=== PATIENT | female | born 1965 | race Caucasian/White ===

== ENCOUNTER → 2017-08-30 13:39 | Outpatient (CLI) | payer OTHER, SELFPAY ==
--- NOTE | 2017-08-30 13:49 | US_ITS ---
STUDY: ULTRASOUND OF THE FEMALE PELVIS - COMPLETE REASON FOR EXAM: Female, 51 years old. Pelvic pain TECHNIQUE: Transabdominal and transvaginal pelvic ultrasound COMPARISON: 04/30/[address] abdomen and pelvis 08/30/2017. FINDINGS: Uterus is surgically absent. There is no mass or suspicious cyst in the left or right adnexa. There is no free fluid in the pelvic cul-de-sac or adnexa. Ovaries are not identified. Urinary bladder appears normal in caliber, contour and wall thickness. US/Pelvic (Non ) IMPRESSION: No acute intrapelvic process is evident. Electronically Signed: Deacon Butler, at 8:59 EDT Tel , Service support ,
--- NOTE | 2017-08-30 15:12 | CT_ITS ---
STUDY: CT ABDOMEN AND PELVIS WITH CONTRAST REASON FOR EXAM: Female, 51 years old. Abdominal pain and pressure. Prolapsed bowel? Prior ZHEN/BSO and cholecystectomy. RADIATION DOSAGE (If Supplied By Facility): CTDIvol = ( 18.00 ) mGy, DLP = ( 1030.80 ) mGycm TECHNIQUE: Transaxial images were obtained from the dome of the diaphragm to the symphysis pubis with oral contrast. 100 ml of Isovue 300 contrast was administered. Sagittal and coronal images were reconstructed. Individualized dose optimization techniques were used for this CT. COMPARISON: None. FINDINGS: The visualized lung bases are unremarkable. The visualized portions of the heart are within normal limits. Normal liver. There are surgical clips in the gallbladder fossa consistent with a prior cholecystectomy. Normal spleen. Normal pancreas. Normal bilateral adrenal glands. Subcentimeter cysts of the inferior pole of the right kidney. Otherwise normal right kidney. Normal left kidney. Normal visualized stomach. Normal small intestine. Normal colon. The appendix is visualized and appears normal. Minimal calcified plaque of the aorta. Normal inferior vena cava. Normal retroperitoneum. Normal urinary bladder. There is absence of the uterus consistent with a prior hysterectomy. Negative for pelvic mass or free fluid in the pelvis. Small dysraphism and minimal fatty umbilical hernia. Mild degenerative changes of the lumbar spine. CT/Abdomen/Pelvis WITH Contrast IMPRESSION: Essentially normal abdomen and pelvic CT exam status post cholecystectomy and hysterectomy. Negative for evidence of bowel prolapse in the supine position. Subcentimeter cysts of the inferior pole of the right kidney and minimal calcified plaque of the aorta. Electronically Signed: Margareth Garcia MD at 16:35 EDT , Service support ,
== END ==
PROVIDERS: Family Provider Family Medicine; PCP Family Medicine; Visit Provider Family Medicine
DX: R10.2 Pelvic and perineal pain (principal)
CPT/HCPCS: 74177; 76856; Q9967

== ENCOUNTER → 2018-07-26 13:01 | Outpatient (CLI) | payer OTHER, SELFPAY ==
--- NOTE | 2018-07-26 14:30 | CT_ITS ---
STUDY: CT ABDOMEN AND PELVIS WITH CONTRAST REASON FOR EXAM: Female, 52 years old. Left lower quadrant pain. RADIATION DOSAGE (If Supplied By Facility): CTDIvol = ( 16.44 ) mGy, DLP = ( 1143.31 ) mGycm TECHNIQUE: Transaxial images were obtained from the dome of the diaphragm to the symphysis pubis without oral contrast. 100 IV/Oral Isovue 300 was administered. Sagittal and coronal images were reconstructed. Individualized dose optimization techniques were used for this CT. COMPARISON: August 30, 2017 FINDINGS: The visualized lung bases are unremarkable. The visualized portions of the heart are within normal limits. There is decreased attenuation of the liver consistent with steatosis. There is evidence of prior cholecystectomy. Normal spleen. Normal pancreas. Normal bilateral adrenal glands. There is a too small to characterize low-attenuation focus within the lower pole of the right kidney that likely reflects underlying cyst. Normal left kidney. Normal visualized stomach. Normal small intestine. Normal colon. The appendix is visualized and appears normal. There are scattered peripheral calcifications of the abdominal aorta and system with atherosclerosis. Normal inferior vena cava. Normal retroperitoneum. Normal urinary bladder. There is absence of the uterus consistent with a prior hysterectomy. Normal abdominal wall. There are diffuse degenerative changes of the visualized lumbar spine. CT/Abdomen/Pelvis WITH Contrast IMPRESSION: Fatty infiltration of the liver. Atherosclerosis. Degenerative changes. Electronically Signed: Cierra Hobbs MD at 16:01 EDT Tel , Service support ,
== END ==
PROVIDERS: Family Provider Family Medicine; PCP Family Medicine; Referring Provider Family Medicine; Visit Provider Family Medicine
DX: R10.9 Unspecified abdominal pain (principal)
CPT/HCPCS: 74177; Q9967

== ENCOUNTER → 2018-12-30 14:36 | Outpatient (CLI) | payer OTHER, SELFPAY ==
[2017-09-11 14:28] VITALS: BMI 33.0
--- NOTE | 2018-12-30 14:41 | RAD_ITS ---
STUDY: X-RAY - ABDOMEN/PELVIS REASON FOR EXAM: Female, 53 years old. Left lower quadrant pain. TECHNIQUE: COMPARISON: None. FINDINGS: Normal visualized lung bases. There is an unremarkable bowel gas pattern. There is no demonstrated free abdominal air. The visualized liver, spleen and kidneys are grossly normal in size and morphology. There are calcified phleboliths in the pelvis. Normal visualized osseous structures. RAD/Abd Inc Decub and/or Erect IMPRESSION: Multiple phleboliths are seen in the pelvis. A tiny distal ureteral calculus cannot be excluded. Electronically Signed: Naren Mena, at 15:39 EDT , Service support ,
== END ==
PROVIDERS: Family Provider Family Medicine; PCP Family Medicine; Referring Provider Nurse Practitioner Adult Health; Visit Provider Nurse Practitioner Adult Health
DX: R10.32 Left lower quadrant pain (principal)
CPT/HCPCS: 74019

== ENCOUNTER → 2019-01-09 08:21 | Outpatient (CLI) | payer OTHER, SELFPAY ==
[2017-09-11 14:28] VITALS: BMI 33.0
--- NOTE | 2019-01-09 08:23 | BI_ITS ---
BILATERAL DIGITAL MAMMOGRAM WITH TOMOSYNTHESIS: Mediolateraloblique and craniocaudal views demonstrate no evidence of dominant parenchymal masses. There is a cluster of loosely grouped microcalcifications seen in the superior lateral aspect of the right breast which previously were not identified, on the prior mammogram obtained on 05/14/2015. Specifically a cluster of 3 more closely grouped microcalcifications is now seen in about the 10:00 position in the posterior third of the right breast. These calcifications are of uncertain etiology but carcinoma in situ as a diagnostic consideration as has milk of calcium. For this reason a targeted right breast ultrasound with compression spot images in the craniocaudal and MLO projection and true lateral projection are recommended for additional evaluation the left breast is normal. Breast Density: The breast tissue is almost entirely fatty. CAD was used to assist in final assessment. BI/SCREEN MAMM (CAD) W/GILBERT BILAT IMPRESSION: No noted are some loosely grouped microcalcifications which are new in the superior lateral aspect of the right breast. Additional imaging including a magnified compression spot imaging the craniocaudal and MLO projection and a true lateral projection is recommended for further evaluation. ASSESSMENT CATEGORY: BIRADS Category 0: Incomplete. Need additional imaging evaluation. A letter regarding these results will be sent to the patient by the facility within 30 days. Approximately 10% of breast cancers are not detected by mammography. A normal mammogram should not delay biopsy of a clinically suspicious abnormality. [id number] Electronically Signed: Silverio Garcia, at 17:24 EDT Tel , Service support ,
== END ==
PROVIDERS: Family Provider Family Medicine; PCP Family Medicine; Referring Provider Family Medicine; Visit Provider Family Medicine
DX: Z12.31 Encounter for screening mammogram for malignant neoplasm of breast (principal)
CPT/HCPCS: 77063; 77067

== ENCOUNTER → 2019-01-10 15:00 | Outpatient (CLI) | payer OTHER, SELFPAY ==
--- NOTE | 2019-01-10 15:22 | BI_ITS ---
MAMMOGRAPHY - UNILATERAL DIAGNOSTIC: RIGHT BREAST REASON FOR EXAM: Female, 53 years old. Microcalcifications in the superior lateral aspect of the right breast PERTINENT HISTORY: Non-contributory. TECHNIQUE: Digital examination. Mediolateral oblique (MLO) and craniocaudad (CC) views of the breast were obtained. CAD: COMPARISON: Previous mammogram obtained on 01/09/2019 FINDINGS: Breast CompositionScattered densities noted throughout the breast. There are no dominant masses or suspicious calcifications. There are some loosely grouped calcifications noted in the superior lateral aspect which were not seen on a previous mammogram the 05/14/2015 in particular, the 3 most inferior calcifications are more tightly grouped and irregular. These 3 calcifications in particular could represent sclerosing adenosis or cecal microcalcifications or carcinoma in situ and a stereotactic right breast biopsy or follow-up mammogram in 6 months would be necessary for further evaluation. These calcifications do not demonstrate layering BI/DIAG MAMM W/CAD, UNILAT IMPRESSION: Some microcalcifications are noted in the superior lateral aspect of the right breast of uncertain etiology. Although they could represent secretory calcifications, sclerosing adenosis or carcinoma in situ cannot be excluded and for this reason a stereotactic breast biopsy is recommended for further evaluation. ASSESSMENT CATEGORY: FINAL ASSESSMENT: BI-RAD CATEGORY IV (SUSPICIOUS ABNORMALITY - BIOPSY RECOMMENDED). FOLLOW-UP RECOMMENDATION: Approximately 10% of breast cancers are not detected by mammography. A normal mammogram should not delay biopsy of a clinically suspicious abnormality. Electronically Signed: Silverio Garcia, at 17:10 EDT Tel , Service support ,
== END ==
PROVIDERS: Family Provider Family Medicine; PCP Family Medicine; Referring Provider Family Medicine; Visit Provider Family Medicine
DX: R92.8 Other abnormal and inconclusive findings on diagnostic imaging of breast (principal)
CPT/HCPCS: 77065

== ENCOUNTER 2019-02-19 02:18 | Emergency (ER) | payer OTHER, SELFPAY ==
[2019-02-19 02:19] VITALS: BP 188/100; PULSE 97; RESP 15; TEMP 36.9; O2SAT 99; BMI 34.2
--- NOTE | 2019-02-19 02:25 | ED.RN ---
RN CALLED FOR EKG, PULLED OLD EKGS FOR
--- NOTE | 2019-02-19 02:31 | EKG12_ITS ---
Test Reason : CP Blood Pressure : / mmHG Vent. Rate : 097 BPM Atrial Rate : 097 BPM P-R Int : 144 ms QRS Dur : 084 ms QT Int : 326 ms P-R-T Axes : 037 004 016 degrees QTc Int : 414 ms Normal sinus rhythm Possible Left atrial enlargement Cannot rule out Inferior infarct , age undetermined Abnormal ECG Confirmed by SANDEE DORSEY, LEE ([id number]), school photograph editor SADAF MARTINI ([id number]) on 02/21/2019 12:39:43 PM Referred By: NASRIN Confirmed By:CECY IGNACIO MD
--- NOTE | 2019-02-19 02:31 | RAD_ITS ---
STUDY: X-RAY CHEST REASON FOR EXAM: Female, 53 years old. Left-sided chest pain for several years. Patient has increasing shortness of breath for 3 days. TECHNIQUE: PA and lateral views of the chest. COMPARISON: June 29, 2014. FINDINGS: Cardiac monitoring leads are present. The lungs are clear and expanded. There is no demonstrated pleural abnormality. Normal size heart. Normal mediastinum and frances. Normal visualized pulmonary arteries. Normal visualized aortic arch and descending thoracic aorta. Normal visualized thoracic spine. Normal visualized ribs, clavicles, and shoulders. There is no demonstrated abnormality of the visualized soft tissue structures of the upper abdomen. RAD/Chest PA and Lateral IMPRESSION: No radiographic evidence of acute cardiopulmonary disease. Electronically Signed: Brianna Kim MD at 2:58 EST , Service support ,
[2019-02-19 02:41] LABS: Absolute Lymphocyte Count 3.85 X10^3/uL (0.83-4.51); Absolute Neutrophil Count 4.3 X10^3/uL (2.0-7.7); Basophil# 0.08 X10^3/uL; Basophil% 0.8 % (0-1); Eosinophil# 0.25 X10^3/uL; Eosinophils% 2.6 % (0-5); Hematocrit 42.7 % (37-47); Hemoglobin 13.9 g/dL (12.0-15.0); Lymphocyte # 3.85 X10^3/ul (4.0); Lymphocyte % 40.7 % (19-41); Mean Corp Hgb Conc 32.6 g/dL (32-36); Mean Corpuscular Hgb 29.4 pg (27.0-32.0); Mean Corpuscular Volume 90.5 fL (81-99); Mean Platelet Vol. 8.3 fl (6.2-12.0); Monocyte# 0.94 X10^3/uL; Monocyte% 9.9 % (0-10); NRBC Flagged by Analyzer 0 % (0-5); Neutrophil # 4.31 X10^3/uL (2.7-7.7); Neutrophil % 45.7 % (47-70); Platelet Count 348 K/mm3 (150-450); RBC Distribution Width CV 12.7 % (11.6-14.6); RBC Distribution Width SD 42.4 fl (35.1-43.9); Red Blood Count 4.72 M/mm3 (4.2-5.4); White Blood Count 9.5 K/mm3 (4.4-11.0)
[2019-02-19] MEDS: Aspirin 81 MG TAB.CHEW 324 MG PO (02:46)
[2019-02-19 02:49] VITALS: BP 157/89
[2019-02-19 02:58] LABS: Anion Gap 6 (5-15); BUN 13 mg/dL (7-18); BUN/Creat Ratio 18.8 RATIO (10-20); Calcium,Total 9.3 mg/dL (8.5-10.1); Chloride 102 mmol/L (98-107); Creatinine, Serum 0.69 mg/dL (0.55-1.02); EST Glomerular Filtration Rate 94 mL/min (>60); Est Glom Filt Rate - Afr Amer 114 mL/min (>60); Estimated Creatinine Clearance 80.49 ml/min; Glucose 113 mg/dL (74-106); Potassium 3.4 mmol/L (3.5-5.1); Sodium Level 138 mmol/L (136-145)
--- NOTE | 2019-02-19 04:16 | ED.VIS.CHEST ---
History of Present Illness Chief Complaint: Chest Pain Informant: Patient Onset: Days Quality: Aching Location: Left Chest Current Severity: Severe Worsened By: Nothing Relieved By: Nothing Associated Symptoms: Nausea Narrative: Patient is a 53-year-old female presenting with chest pain. Patient states she has chronic pain in her left breast. She describes it as an ache and states she had increased pressure. She has been worsening over the past month and more significantly over the past few days. She notes sometimes the pain radiates to her left underarm in her shoulder. She states is been particularly pounding since yesterday. Patient notes she has associated headache and nausea but no vomiting. She had normal bowel movements. She woke up to use the restroom tonight the pain was significantly worse. She also felt that she was shaking and her jaw was quivering. This is what triggered the patient to come to the emergency room. Patient also notes she is been more fatigued lately. She notes over the past 2 months she is also had what feels like mucus or not in her throat. Patient denies any history of DVT or PE. She denies any swelling of her legs. She does not currently feel short of breath. She did tell triage that she was feeling short of breath but when I talked her she states it is more of the sensation of something in her throat than actual dyspnea. Patient denies associated fever or chills. She denies any rash. She denies any aggravating or alleviating factors. Patient has had negative stress test in the past as well as negative catheterization. She has seen Dr. Hartman, cardiology. Recent Illness/Hospitalization: No Past Medical History - Allergies and Home Meds Allergies/Adverse Reactions: Allergies latex Allergy (Verified 02/19/19 02:19) Rash Penicillins Allergy (Verified 02/19/19 02:19) Rash Primary Care Physician: Airam Garrett MD [Primary Care Provider] - Past Medical History: - - anemia Surgical History: hysterectomy Smoking Status: Never smoker - Family History Paternal Family History: Family History (Last Updated 09/11/17 @ 14:35 by Kathie Palma) Father Cancer Heart disease Grandmother Heart disease Grandfather Heart disease Mother Hypertension Family History: Reports: Heart Disease - Bypass surgery ?4 Maternal Family History: Family History (Last Updated 09/11/17 @ 14:35 by Kathie Palma) Father Cancer Heart disease Grandmother Heart disease Grandfather Heart disease Mother Hypertension Family History: Reports: - - Atypical recovery from anesthesia. History TKR Review of Systems General: Reports: - - Lightheaded . Denies: Chills, Fever, Sweats Eyes: Denies: Visual changes - bilaterally, Diplopia ENT: Reports: Sore throat. Denies: Rhinorrhea Cardiovascular: Reports: Chest pain. Denies: Palpitations Respiratory: Denies: Dyspnea, Cough, Dyspnea on exertion Gastrointestinal: Reports: Nausea. Denies: Abdominal pain, Vomiting, Diarrhea Genitourinary: Denies: Dysuria, Hematuria, Frequency Musculoskeletal: Denies: Back pain, Extremity Pain Skin: Denies: Rash, Wounds Neurological: Denies: Headache, Weakness, Numbness Physical Exam Vital Signs/Narrative: Vital Signs Temp Pulse Resp BP Pulse Ox 02/19/19 02:49 157/89 H 02/19/19 02:19 98.4 F 97 15 188/100 H 99 Inital Vital Signs reviewed: Yes General: Well nourished, Well developed, No Acute Distress Head: Normocephalic, Atraumatic Eyes: Perrl, EOMI ENT: Moist mucous membranes, No rhinorrhea, TM's clear Neck: Supple, Nontender Cardiovascular: Regular rate, Regular rhythm, No murmurs Respiratory: No distress, CTA bilaterally, Chest tenderness - left anterior upper chest wall Abdomen: Soft, Nontender, Nondistended, Normal bowel sounds. Negative for: Rush's sign Back: Nontender, Normal Inspection Extremities: Nontender, No edema Skin: Normal color, No rash Neurological: Alert, Oriented x3, Cranial nerves II-XII grossly intact, Normal Strength, Normal Sensation Psychological: Normal affect, Normal Mood Diagnostic/Tx/Re-eval Chest X-Ray - ED: 2 View, Read by ED Physician, Read by Radiologist, No Acute Disease Clinical Impression(s) from Imaging Studies Chest X-Ray 02/19/19 02:31 IMPRESSION: No radiographic evidence of acute cardiopulmonary disease. Electronically Signed: Brianna Kim MD at 2:58 EST , Service support , Laboratory Data 02/19/19 02/19/19 02/19/19 02:20 02:20 05:20 WBC 9.5 RBC 4.72 Hgb 13.9 Hct 42.7 MCV 90.5 MCH 29.4 MCHC 32.6 RDW Std Deviation 42.4 RDW Coeff of Millicent 12.7 Plt Count 348 MPV 8.3 Immature Gran % (Auto) 0.300 Neut % (Auto) 45.7 L Lymph % (Auto) 40.7 [place] % (Auto) 9.9 Eos % (Auto) 2.6 Baso % (Auto) 0.8 Absolute Neuts (auto) 4.3 Absolute Lymphs (auto) 3.85 Nucleated RBC % 0 Sodium 138 Potassium 3.4 L Chloride 102 Carbon Dioxide 30.0 Anion Gap 6 BUN 13 Creatinine 0.69 Estim Creat Clear Calc 80.49 Est GFR (MDRD) Af Amer 114 Est GFR (MDRD) Non-Af 94 BUN/Creatinine Ratio 18.8 Glucose 113 H Calcium 9.3 Troponin I < 0.015 < 0.015 - Rhythm Strip Rhythm Strip: Sinus Rhythm - 100 Ectopy: None - EKG Initial EKG Interpretation: Sinus Rhythm, - - Sinus rhythm at a rate of 100 Normal intervals Left axis deviation Nonspecific T wave inversion in lead III Poor baseline secondary to motion artifact ind V5 and V6 Prior: Unchanged - 06/30/14 Follow-up EKG Interpretation: Sinus Rhythm, Non-Specific ST Changes, - - Sinus rhythm at a rate of 68 Left axis T wave inversion in lead III No change except for slightly lower rate compared to prior EKG earlier DESTINY Risk: No Positive DESTINY Elements Score: 0 - Medical Decision Making She is evaluated for chest pain. She has had this chest pain for months but is been more intense over the past few days. Patient is low risk for ACS. Delta troponin is negative x2. She does not have dynamic EKG changes. Due to the chronicity of her symptoms as well as her grossly negative work-up I do feel that she is stable for further outpatient follow-up. Patient will follow-up with her PCP. She does have relation with cardiology and will follow up with Dr. Hartman as well. Patient sensation of discomfort in the back of her throat and her upper chest pain is concerning for possible GI cause. Patient is given a GI cocktail does have improvement of her symptoms. She will be started on Pepcid empirically. Patient is hypertensive on arrival. Without intervention her blood pressure returns to normal. Likely initial presentation of hypertension was secondary to discomfort and stress. Patient does complain of a headache in the ER. She has a normal neurologic exam. She states this is her typical headaches. She is given a dose of IV Toradol for this. Patient is counseled on signs and symptoms requiring return to the emergency room. Patient verbalizes agreement and understand this plan. Patient discharged home in stable and improved condition. ED Disposition - Plan for ED Patient: Disposition: Home or Assisted Living Diagnosis: Chest pain Instructions: CHEST PAIN, Uncertain Cause Prescriptions: Famotidine [Pepcid] 20 mg PO BID #28 tab Prescription Printed Referrals: Airam Garrett MD [Primary Care Provider] - Additional Instructions: The exact cause of your chest pain is not clear however I think you are safe to follow-up with your primary care doctor. Call your air shovel operator for follow-up as well. He will be trialed on a course of an antacid to see if this helps with your symptoms. Take Tylenol as needed for pain. Return the emergency room if you have any worsening symptoms.
[2019-02-19 04:30] VITALS: BP 142/78; PULSE 74; RESP 14; O2SAT 95
[2019-02-19] MEDS: Mag Hydrox/Al Hydrox/Simeth 30 ML UDC PO (04:36)
--- NOTE | 2019-02-19 05:17 | EKG12_ITS ---
Test Reason : REPEAT Blood Pressure : / mmHG Vent. Rate : 068 BPM Atrial Rate : 068 BPM P-R Int : 162 ms QRS Dur : 080 ms QT Int : 424 ms P-R-T Axes : 010 -06 -13 degrees QTc Int : 450 ms Normal sinus rhythm Minimal voltage criteria for LVH, may be normal variant Inferior infarct , age undetermined Abnormal ECG Confirmed by SANDEE DORSEY, LEE ([id number]), editor publications SADAF MARTINI ([id number]) on 02/21/2019 12:27:42 PM Referred By: KRISTAN Confirmed By:CECY IGNAICO MD
[2019-02-19 06:14] VITALS: BP 124/73; PULSE 68; RESP 14; O2SAT 94
[2019-02-19 06:15] VITALS: BP 118/73; PULSE 68; RESP 12; O2SAT 95
[2019-02-19] MEDS: Ketorolac 15 MG/ML Vial IV (07:00)
== END 2019-02-19 07:07 | disposition home or self-care (01) ==
PROVIDERS: Emergency Provider Emergency Medicine; Family Provider Family Medicine; PCP Family Medicine
DX: R07.9 Chest pain, unspecified (principal); R51 Headache; Z82.49 Family history of ischemic heart disease and other diseases of the circulatory system
CPT/HCPCS: 71046; 80048; 84484; 85025; 93005; 96374; 99285; A4216

== ENCOUNTER 2019-02-19 21:46 | Observation (INO) | payer OTHER, SELFPAY ==
[2019-02-19 02:19] VITALS: BMI 34.2
[2019-02-19 21:48] VITALS: BP 196/104; PULSE 99; RESP 17; TEMP 36.9; O2SAT 98; BMI 34.7
--- NOTE | 2019-02-19 22:11 | EKG12_ITS ---
Test Reason : ADMISSION EKG Blood Pressure : / mmHG Vent. Rate : 064 BPM Atrial Rate : 064 BPM P-R Int : 152 ms QRS Dur : 088 ms QT Int : 426 ms P-R-T Axes : 008 009 004 degrees QTc Int : 439 ms Normal sinus rhythm Normal ECG When compared with ECG of 19-FEB-2019 21:50, MANUAL COMPARISON REQUIRED, DATA IS UNCONFIRMED Confirmed by KEYANNA DORSEY, ELANA ([id number]), newspaper editor managing SADAF MARTINI ([id number]) on 02/24/2019 10:14:20 AM Referred By: JAD Confirmed By:ELANA BRICEÑO MD
[2019-02-19] MEDS: Aspirin 81 MG TAB.CHEW 324 MG PO (22:17)
[2019-02-19 22:19] LABS: Absolute Lymphocyte Count 3.53 X10^3/uL (0.83-4.51); Absolute Neutrophil Count 4.7 X10^3/uL (2.0-7.7); Basophil# 0.06 X10^3/uL; Basophil% 0.6 % (0-1); Eosinophil# 0.27 X10^3/uL; Eosinophils% 2.9 % (0-5); Hematocrit 41.9 % (37-47); Hemoglobin 13.6 g/dL (12.0-15.0); Lymphocyte # 3.53 X10^3/ul (4.0); Lymphocyte % 37.7 % (19-41); Mean Corp Hgb Conc 32.5 g/dL (32-36); Mean Corpuscular Hgb 29.5 pg (27.0-32.0); Mean Corpuscular Volume 90.9 fL (81-99); Mean Platelet Vol. 8.6 fl (6.2-12.0); Monocyte# 0.83 X10^3/uL; Monocyte% 8.9 % (0-10); NRBC Flagged by Analyzer 0 % (0-5); Neutrophil # 4.66 X10^3/uL (2.7-7.7); Neutrophil % 49.7 % (47-70); Platelet Count 357 K/mm3 (150-450); RBC Distribution Width CV 12.9 % (11.6-14.6); RBC Distribution Width SD 42.9 fl (35.1-43.9); Red Blood Count 4.61 M/mm3 (4.2-5.4); White Blood Count 9.4 K/mm3 (4.4-11.0)
[2019-02-19 22:26] VITALS: BP 166/80
[2019-02-19 22:39] LABS: Anion Gap 6 (5-15); BUN 17 mg/dL (7-18); Calcium,Total 9.2 mg/dL (8.5-10.1); Chloride 107 mmol/L (98-107); Creatinine, Serum 0.74 mg/dL (0.55-1.02); EST Glomerular Filtration Rate 87 mL/min (>60); Est Glom Filt Rate - Afr Amer 105 mL/min (>60); Estimated Creatinine Clearance 75.05 ml/min; Glucose 134 mg/dL (74-106); Potassium 4.4 mmol/L (3.5-5.1); Sodium Level 141 mmol/L (136-145)
[2019-02-19 23:17] VITALS: BP 147/89; PULSE 83; RESP 15; O2SAT 94
--- NOTE | 2019-02-19 23:51 | ED.DCSUM_ITS ---
- ER Visit Summary Date of Service: 02/19/19 Chief Complaint: Chest pain History of Present Illness: The patient is a 53 F with chest pain. The patient had pain last night and was seen in the ED. Her work-up was unremarkable and she was determined to be low risk, so she was discharged for outpatient follow- up. Today she presents with continued chest pain that radiates in her jaw. She is also having shortness of breath. She reports numbness in her jaw, but it is bilateral. She denies any unilateral numbness or weakness. Denies any vision changes or facial droop. Denies speech changes. She denies any history of cardiac disease. She had a heart cath in 2014 and did not require stenting or intervention. She takes aspirin occasionally, but no other blood thinners. Denies any history of DVT or PE. Denies any history of aortic disease. Physical Examination: Afebrile and vital signs unremarkable. Alert and oriented. No acute distress. Heart regular. Lungs clear. Abdomen soft. Skin normal. Calves soft and supple. Test Results: EKG sinus rhythm at a rate of 97. No acute ischemia or infarction pattern. Labs unremarkable. Emergency Department Course and Treatment: Patient was placed on a monitor. EKG showed no evidence of SD or ischemia. Labs were all fairly unremarkable. Patient is low risk, but her pain seems to be worsening. I am not sure if this is unstable angina. She does not have any history of DVT or PE or aortic disease. Given her continued symptoms, the hospitalist was contacted for admission to rule out ACS. Treatment Plan: As above Disposition: Admission Impression: 1. Chest pain This note was generated with [employer] dictation software. It may contain incorrect words, spelling, and punctuation that were not noted in review of the chart prior to signing ED Disposition - Plan for ED Patient: Referrals: Airam Garrett MD [Primary Care Provider] -
--- NOTE | 2019-02-19 23:54 | PCM.HP.STD ---
Problem List (1) Chest pain Status: Acute Qualifiers: Chest pain type: unspecified Qualified Code(s): R07.9 - Chest pain, unspecified (2) Hypertensive urgency Status: Acute (3) Elevated BP without diagnosis of hypertension Status: Acute (4) Hyperglycemia Status: Acute (5) Obesity Status: Chronic Qualifiers: Obesity type: due to excess calories Obesity classification: adult class 1 (BMI 30 - 34.9) Serious obesity comorbidity presence: unspecified whether serious comorbidity present (6) Anxiety Status: Chronic (7) GERD (gastroesophageal reflux disease) Status: Chronic Qualifiers: Esophagitis presence: esophagitis presence not specified Qualified Code(s): K21.9 - Gastro-esophageal reflux disease without esophagitis History of Present Illness Date of Admission: 02/19/19 Chief Complaint: Chest pain The patient is a 53 y/o F w/ PMHx: Obesity, Anxiety, GERD, History of Chronic L Breast pain s/p prior cardiac catheterization ~ 5 years prior as well as stress testing 2-3 years prior also unremarkable who presents to the [facility] ED on 02/19/19 initially earlier in the day with complaint of midsternal throbbing, described as a thumping, rated 10/10 in severity with radiation to bilateral jaw with paresthesias associated as well as dyspnea, nausea without emesis with clinical improvement in the ED and unremarkable work-up including unremarkable cardiac enzymes x2, chest x-ray with no acute cardiopulmonary findings and unremarkable labs; however upon return to home patient had recurrent event following her evening meal with again bilateral jaw discomfort and paresthesias, dyspnea, mid chest discomfort, severe, 10 out of 10 in severity, described as pressure and sharp radiating toward her back prompting return. Work-up in the ED included T 98.4, heart rate 99, BP initially 196/104 with repeat 147/89, respiratory rate 17, 98% on room air, unremarkable CBC, BMP with glucose 134 otherwise unremarkable, troponin less than 0.015, chest x-ray from prior evaluation with no acute cardiopulmonary findings, EKG with sinus rhythm with nonspecific ST changes with previously noted left axis, T wave inversion lead III similar to prior EKGs. In the ED patient ministered aspirin 324 mg p.o. x1. Past Medical History Past Medical History (Chronic Problems): Chronic Problems (Last Updated 09/11/17 @ 14:34 by Kathie Palma) GERD (gastroesophageal reflux disease) (Chronic) Obesity (Chronic) Anxiety (Chronic) Chest wall pain (Chronic) Fatigue (Chronic) Medical History: Medical History (Last Updated 09/11/17 @ 14:34 by Kathie Palma) Anxiety F41.9 Allergies latex Allergy (Verified 02/19/19 21:47) Rash Penicillins Allergy (Verified 02/19/19 21:47) Rash Home Medications: Ambulatory Orders Medication Instructions Recorded aspirin 81 mg tablet,delayed 81 mg PO QDAY 09/11/17 release Famotidine [Pepcid] 20 mg PO BID #28 tab 02/19/19 Surgical History: Surgical History (Last Updated 09/11/17 @ 14:34 by Kathie Palma) History of carpal tunnel surgery Z98.890 History of total vaginal hysterectomy (TVH) Z90.710 Hx of cholecystectomy Z90.49 Surgical History: hysterectomy, - - Hysterectomy, cholecystectomy, right carpal tunnel surgery. 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 Lives: Spouse/ Significant Other Smoking Status: Never smoker Tobacco Use: Non-smoker Alcohol: None Drugs: None - *Family History Paternal Family History: Family History (Last Updated 09/11/17 @ 14:35 by Kathie Palma) Father Cancer Heart disease Grandmother Heart disease Grandfather Heart disease Mother Hypertension History Items: Cancer, Heart Disease - Bypass surgery ?4, Hypertension Maternal Family History: Family History (Last Updated 09/11/17 @ 14:35 by Kathie Palma) Father Cancer Heart disease Grandmother Heart disease Grandfather Heart disease Mother Hypertension History Items: Hypertension Review of Systems Constitutional: Reports: Malaise, Weakness, Fatigue. Denies: Chills, Fever, Weight Change HEENT: Reports: - - Jaw pain BL, paresthesias. Denies: Head Aches, Sinus Congestion, Sinus Drainage Cardiovascular: Reports: Chest Pain, Chest Pressure, Chest Tightness. Denies: Light Headedness, Orthopnea, Palpitations, Syncope Respiratory: Reports: Shortness of Breath. Denies: Cough, Shortness of breath at rest, Shortness of breath upon exertion, Sputum production, Wheezing Gastrointestinal: Reports: Nausea. Denies: Abdominal Pain, Vomiting Genitourinary: Denies: Dysuria Musculoskeletal: Denies: Joint Pain, Joint Tenderness Skin: Denies: Rash, Wounds Neurological: Denies: Numbness, Tingling, Focal weakness Psychiatric: Reports: Anxiety. Denies: Depression, Homicidal Ideations, Suicidal Ideations Hematologic/ Lymphatic: Denies: Easy Bruising, Easy Bleeding VTE Information - Inpt Only VTE Present on Admission: No VTE Mechan Device Prophylaxis: SCD's VTE Pharm Prophylaxis ordered?: Yes Patient Problems: Active and Suspected Problems (Last Updated 09/11/17 @ 14:34 by Kathie Palma) Hypertensive urgency (Acute) Elevated BP without diagnosis of hypertension (Acute) Hyperglycemia (Acute) Subjective: Seated upright in ED bed, mildly fatigued appearance, no current chest discomfort, no acute distress. Objective: Physical Examination: General: awake, alert, oriented x 3 and cooperative, seated upright in the ED bed in no apparent distress, no current chest pain. Skin: normal color, turgor, no icterus, cyanosis. HEENT: AT/NC, EOMI, PERRLA, mildly dry MM, no carotid bruits or JVD noted. Lungs: CTA bilaterally, moderate effort, mild decrease BL bases, no rales, ronchi or wheezing. Heart: Regular rate and rhythm; no gallop, rub audible, some reproducible L sided anterior chest pain. Abdomen: soft, obese, NTTP, ND, normal BS, no HSM. Extremities: no cyanosis, clubbing, mild BL ankle edema. Neurological: patient awake, alert, oriented x 3; cognitive function intact; pupils equally reactive to light and accomodation; cranial nerves II-XII grossly normal, moving all 4 extremities, no focal deficits, strength moderately globally decreased secondary to acute presentation. Psychiatric: affect appears mildly fatigued, no acute evidence of depressive or anxiety feelings. - Physical Exam Vitals/I&O's: Vital Signs Temp Pulse Resp BP Pulse Ox 98.4 F 83 15 147/89 H 94 02/19/19 21:48 02/19/19 23:17 02/19/19 23:17 02/19/19 23:17 02/19/19 23:17 Oxygen Delivery Method Room Air Weight: 202 lb 2.622 oz Body Mass Index (BMI) 34.7 Laboratory Results 02/19/19 22:04: WBC 9.4, RBC 4.61, Hgb 13.6, Hct 41.9, MCV 90.9, MCH 29.5, MCHC 32.5, RDW Std Deviation 42.9, RDW Coeff of Millicent 12.9, Plt Count 357, MPV 8.6, Immature Gran % (Auto) 0.200, Neut % (Auto) 49.7, Lymph % (Auto) 37.7, [place] % (Auto) 8.9, Eos % (Auto) 2.9, Baso % (Auto) 0.6, Absolute Neuts (auto) 4.7, Absolute Lymphs (auto) 3.53, Nucleated RBC % 0 02/19/19 22:04: Sodium 141, Potassium 4.4, Chloride 107, Carbon Dioxide 28.0, Anion Gap 6, BUN 17, Creatinine 0.74, Estim Creat Clear Calc 75.05, Est GFR (MDRD) Af Amer 105, Est GFR (MDRD) Non-Af 87, BUN/Creatinine Ratio 23.0 H, Glucose 134 H, Calcium 9.2, Troponin I < 0.015 Assessment/Plan All Active Problems (Last Updated 09/11/17 @ 14:34 by Kathie Palma) Chest pain (Acute) Hypertensive urgency (Acute) Elevated BP without diagnosis of hypertension (Acute) Hyperglycemia (Acute) Dyspnea on exertion (Acute) Chest pain on exertion (Acute) Anemia (Acute) Hypotension (Acute) The patient is a 53 y/o F w/ PMHx: Obesity, Anxiety, GERD, History of Chronic L Breast pain s/p prior cardiac catheterization ~ 5 years prior as well as stress testing 2-3 years prior also unremarkable who presents to the [facility] ED on 02/19/19 initially earlier in the day with complaint of midsternal throbbing, described as a thumping, rated 10/10 in severity with radiation to bilateral jaw with paresthesias associated as well as dyspnea, nausea without emesis. 1. Chest Pain, HTN Urgency: EKG in ED sinus rhythm with nonspecific changes with no acute evidence of ischemia, CXR w/ no acute cardiopulmonary findings, initial trop normal x1 however she was here earlier in the day and had 2 normal cardiac enzymes at that time. Will admit to PCU, place on a monitored bed to assure no acute myocardial infarction with serial cardiac enzymes and EKGs. If repeat cardiac enzymes and EKGs remain unremarkable will pursue a.m. cardiac stress testing. ASA, NG, morphine. FLP in AM. Mag pending. UDS requested. 2. Elevated blood pressure without hypertensive diagnosis, Hypertensive Urgency: Notably elevated blood pressure upon ED presentation, improved without any intervention, also elevated earlier in the day thus suspect underlying hypertension, possibly contributing to patient chest complaint as noted, will initiate patient on lisinopril and hydrochlorothiazide combination, PRN IV hydralazine. 3. Anxiety: Not on regimen, may be contributing to acute presentation #1, #2, encourage outpatient follow-up, consideration of SNRI versus SSRI if appropriate. 4. Obesity: Weight loss and lifestyle changes encouraged, nutrition consulted. 5. GERD: We will maintain on famotidine. 6. Hyperglycemia: Admission glucose mildly elevated 134, hemoglobin A1c requested. 7. DVT Prophylaxis: SCDs, lovenox. Code Visit OBSV E&M: 61313 Initial observation care L3
[2019-02-20] VITALS (11 sets, daily range): BP systolic 110–159; BP diastolic 60–79; PULSE 55–84; RESP 13–20; TEMP 36.8–37.1; O2SAT 96–99; BMI 33.7; BMI 33.8
--- NOTE | 2019-02-20 00:53 | EKG12_ITS ---
Test Reason : CP Blood Pressure : / mmHG Vent. Rate : 100 BPM Atrial Rate : 100 BPM P-R Int : 160 ms QRS Dur : 080 ms QT Int : 354 ms P-R-T Axes : 032 -02 006 degrees QTc Int : 456 ms Normal sinus rhythm Possible Left atrial enlargement Cannot rule out Inferior infarct , age undetermined ST & T wave abnormality, consider lateral ischemia Abnormal ECG Confirmed by SANDEE DORSEY, LEE ([id number]), development editor SADAF MARTINI ([id number]) on 02/21/2019 12:28:11 PM Referred By: KRISTAN Confirmed By:CECY IGNACIO MD
[2019-02-20] MEDS: 0.9% Normal Saline 1,000 ML 100 ML IV (01:25)
[2019-02-20] MEDS: hydroCHLOROthiazide 12.5mg 12.5 MG PO ×2 (01:26→11:34)
[2019-02-20] MEDS: Lisinopril 10 MG Tablet PO ×2 (01:26→11:34)
[2019-02-20] MEDS: Famotidine 20 MG Tablet PO ×2 (01:26→11:34)
[2019-02-20 01:55] LABS: Magnesium 2.2 mg/dL (1.6-2.6)
[2019-02-20] MEDS: Acetaminophen 325 MG Tablet 650 MG PO (03:49)
[2019-02-20] MEDS: 0.9% Saline Lock 10 ML Syringe IV (03:51)
[2019-02-20 04:13] LABS: Absolute Lymphocyte Count 2.51 X10^3/uL (0.83-4.51); Absolute Neutrophil Count 6.2 X10^3/uL (2.0-7.7); Basophil# 0.05 X10^3/uL; Basophil% 0.5 % (0-1); Eosinophil# 0.08 X10^3/uL; Eosinophils% 0.8 % (0-5); Hematocrit 39.2 % (37-47); Hemoglobin 12.7 g/dL (12.0-15.0); Lymphocyte # 2.51 X10^3/ul (4.0); Lymphocyte % 26.4 % (19-41); Mean Corp Hgb Conc 32.4 g/dL (32-36); Mean Corpuscular Hgb 29.5 pg (27.0-32.0); Mean Platelet Vol. 8.7 fl (6.2-12.0); Monocyte# 0.62 X10^3/uL; Monocyte% 6.5 % (0-10); NRBC Flagged by Analyzer 0 % (0-5); Neutrophil # 6.21 X10^3/uL (2.7-7.7); Neutrophil % 65.5 % (47-70); Platelet Count 325 K/mm3 (150-450); RBC Distribution Width SD 43.4 fl (35.1-43.9); Red Blood Count 4.31 M/mm3 (4.2-5.4); White Blood Count 9.5 K/mm3 (4.4-11.0)
[2019-02-20 04:33] LABS: Anion Gap 7 (5-15); BUN 13 mg/dL (7-18); BUN/Creat Ratio 18.2 RATIO (10-20); Calcium,Total 8.6 mg/dL (8.5-10.1); Chloride 106 mmol/L (98-107); Cholesterol 218 mg/dL (200); Creatinine, Serum 0.72 mg/dL (0.55-1.02); EST Glomerular Filtration Rate 90 mL/min (>60); Est Glom Filt Rate - Afr Amer 109 mL/min (>60); Estimated Creatinine Clearance 77.13 ml/min; Glucose 105 mg/dL (74-106); High Density Lipoprotein 81 mg/dL; Potassium 4.8 mmol/L (3.5-5.1); Sodium Level 141 mmol/L (136-145); Triglycerides 92 mg/dL; Very Low Density Lipoprotein 18 mg/dL (5-40)
[2019-02-20] MEDS: Aspirin E.C. 81 MG Tablet PO (06:10)
--- NOTE | 2019-02-20 09:58 | STEWCON_ITS ---
Version 2 Reason For Study: chest pain Stress Results Protocol: PARISH WITH DEFINITY Maximum Predicted HR: 166 bpm Target HR: 141 bpm % Maximum Predicted HR: 95 % DurationHeart Rate Stage (mm:ss) (bpm) BP Comment baseline 61 124/76definity 2ml given stage 1 3:00 127 148/82 stage 2 3:00 148 152/88 stage 3 1:00 157 / recovery 81 128/80 Stress Duration: 7:00 mm:ss Maximum Stress HR: 157 bpm Baseline Echocardiogram Findings The estimated ejection fraction is 65 %. Stress Echo Wall motion Data Resting WM Intermediate WM Stress WM Resting Wall Motion Wall Motion Stress No regional wall motion No regional wall motion abnormalities noted. abnormalities noted. EKG Data About 1mm upsloping ST depression in the inferior and lateral leads. No significant ischemic changes noted at peak exercise and recovery. Symptoms with Stress The patient experinced no chest pain . Interpretation Summary The estimated ejection fraction is 65 %. The patient experinced no chest pain . Stress echo is negative for stress induced EKG or echocardiographic changes of ischemia. Functional capacity is normal for age Ordering Physician: India Dorsey Referring Physician: Anabell Jacques MD Performed By: Cynthia Lynn, KAREN, RVT
--- NOTE | 2019-02-20 15:05 | PCM.DC ---
- Discharge Diagnoses Current Active Problems: Current Active and Chronic Problems (Last Updated 09/11/17 @ 14:34 by Kathie Palma) Hypertensive urgency (Acute) Elevated BP without diagnosis of hypertension (Acute) GERD (gastroesophageal reflux disease) (Chronic) Hyperglycemia (Acute) Obesity (Chronic) Anxiety (Chronic) You will use the following diet at home:: Cardiac Your food should be the consistency of: Regular Your liquids should be the consistency of: Regular/Thin Discharge Activity: Return to Normal Activity Weight Bearing Status: Weight bearing as tolerated Call your doctor if you observe: Shortness of breath, Swelling in the ankles, Chest pain Instructions: What Is Angina?, Taking PASTORA Inhibitors, High Blood Pressure (Hypertension) Allergies/Adverse Reactions: Allergies latex Allergy (Verified 02/19/19 21:47) Rash Penicillins Allergy (Verified 02/19/19 21:47) Rash Medications to take at Discharge aspirin 81 mg tablet,delayed release 81 mg PO QDAY 09/11/17 Famotidine [Pepcid] 20 mg PO BID 02/20/19 Lisinopril [Zestril] 10 mg PO DAILY #30 tab 02/20/19 The following prescriptions were given: Lisinopril [Zestril] 10 mg PO DAILY #30 tab Transmission Status: Pending to [facility] [place], [place] [address] [facility] Primary Care Physician: Airam Garrett MD [Primary Care Provider] - Please follow up with your Primary Care Physician in: one week Test Results: Test results from this visit will be discussed in further detail at your follow-up appointment, if applicable. Proposed Discharge Date: 02/20/19
--- NOTE | 2019-02-20 15:07 | DS.PCM_ITS ---
Discharge Date and Diagnosis - Problem List Patient Problems: Active and Suspected Problems (Last Updated 09/11/17 @ 14:34 by Kathie Palma) Hypertensive urgency (Acute) Elevated BP without diagnosis of hypertension (Acute) Hyperglycemia (Acute) Date of Admission: 02/19/19 Date of Discharge: 02/20/19 - Primary Discharge Diagnosis Active and Suspected Problems (Last Updated 09/11/17 @ 14:34 by Kathie Palma) Hypertensive urgency (Acute) Elevated BP without diagnosis of hypertension (Acute) Hyperglycemia (Acute) chest pain - Secondary Discharge Diagnosis Chronic Problems (Last Updated 09/11/17 @ 14:34 by Kathie Palma) GERD (gastroesophageal reflux disease) (Chronic) Obesity (Chronic) Anxiety (Chronic) Chest wall pain (Chronic) Fatigue (Chronic) Hospital Course and Treatment Imaging Results: 02/20/19 09:58 Stress Test Echo W/Contrast [ECHO] Routine Operations: None Procedures: Stress test Summary of Care Provided: The patient is a 53 year old F with a past medical history as listed. She was admitted to the ED on 02/19/2019 with a complaint of retrosternal throbbing chest pain which radiated to her jaw. She had a stiff shortness of breath and nausea without vomiting. She had been seen earlier on the day of presentation in the ED and was discharged home after troponins x2 were negative and chest x- ray showed no acute cardiopulmonary findings. Chest pain however persisted so she decided to come back to the ED where blood pressure was 196/104, initial troponin was less than 0.015 and EKG showed sinus rhythm with no acute ST changes. Patient was admitted to be managed for hypertensive emergency and chest pain rule out ACS. She was started on lisinopril and hydrochlorothiazide. Troponins x3 were negative. She had a stress echocardiogram on 02/20/2019 which was negative. Blood pressures. She was discharged home on 02/20/2019 with a prescription for p.o. lisinopril 10 mg daily. She is to keep a log of her blood pressure and to follow-up with her PCP for medication of blood pressure medications as deemed necessary. Patient seen and examined prior to discharge. She had no complaints. Review of systems otherwise negative. Labs and vitals reviewed. Medication reviewed and reconciled. Of note patient earlier on refused to have nuclear medicine stress test because she said the nuclear medication use made her throat tight and difficult for her to breathe, based on a previous stress test she had in 2012. After counseling by hospitalist, she agreed to have an exercise stress echocardiogram. o/e: Vital Signs Height 5 ft 4 in Weight: 196 lb 10.437 oz Weight in Pounds 196.7 lbs Pulse Ox 99 Temperature 98.2 F Pulse Rate 55 Respiratory Rate 14 Blood Pressure 132/77 Blood Pressure Position Semi-Fowlers ] Patient Problems: Active and Suspected Problems (Last Updated 09/11/17 @ 14:34 by Kathie Palma) Hypertensive urgency (Acute) Elevated BP without diagnosis of hypertension (Acute) Hyperglycemia (Acute) - Physical Exam Vitals/I&O's: Vital Signs Temp Pulse Resp BP Pulse Ox 98.2 F 55 L 14 132/77 H 99 02/20/19 09:42 02/20/19 12:00 02/20/19 09:42 02/20/19 09:42 02/20/19 09:42 Oxygen Delivery Method Room Air Weight: 196 lb 10.437 oz Body Mass Index (BMI) 33.7 Intake and Output for Last 24 Hours 02/18/19 02/19/19 02/20/19 23:59 23:59 23:59 Intake Total 1328.33 / 1328.33 Balance 1328.33 / 1328.33 General: Alert, Oriented x3, Cooperative, No apparent distress HEENT: Atraumatic, PERRLA, EOMI, Normocephalic Oral: Moist Mucosa Neck: Supple, No JVD, Negative Carotid Bruits Lungs: Clear to auscultation, Normal air movement, No rhonchi, No wheeze, No rales Cardiovascular: Regular rate, Regular Rhythm, Normal S1, Normal S2, No murmurs Abdomen: Bowel Sounds Present, Soft, Non Tender, Non-Distended, No Hepato- splenomegaly Extremities: No clubbing, No cyanosis, No edema, Capillary Refill Less than 3 Seconds Skin: No rashes, No breakdown Musculoskeletal: No Tenderness to Palpation of Joints or Extremities Lymphatic: No Cervical, Supraclavicular, or Inguinal Adenopathy Neurological: Cranial nerves II-XII grossly intact, Neuro grossly intact, Motor Exam 5/5 strength throughout Psych/Mental Status: Normal Affect, Appropriate, Alert and oriented to time, place, person, mood and affect Laboratory Results 02/19/19 22:04: WBC 9.4, RBC 4.61, Hgb 13.6, Hct 41.9, MCV 90.9, MCH 29.5, MCHC 32.5, RDW Std Deviation 42.9, RDW Coeff of Millicent 12.9, Plt Count 357, MPV 8.6, Immature Gran % (Auto) 0.200, Neut % (Auto) 49.7, Lymph % (Auto) 37.7, [place] % (Auto) 8.9, Eos % (Auto) 2.9, Baso % (Auto) 0.6, Absolute Neuts (auto) 4.7, Absolute Lymphs (auto) 3.53, Nucleated RBC % 0 02/19/19 22:04: Sodium 141, Potassium 4.4, Chloride 107, Carbon Dioxide 28.0, Anion Gap 6, BUN 17, Creatinine 0.74, Estim Creat Clear Calc 75.05, Est GFR (MDRD) Af Amer 105, Est GFR (MDRD) Non-Af 87, BUN/Creatinine Ratio 23.0 H, Glucose 134 H, Calcium 9.2, Troponin I < 0.015 02/20/19 01:25: Magnesium 2.2 02/20/19 01:25: Troponin I < 0.015 02/20/19 03:40: WBC 9.5, RBC 4.31, Hgb 12.7, Hct 39.2, MCV 91.0, MCH 29.5, MCHC 32.4, RDW Std Deviation 43.4, RDW Coeff of Millicent 13.0, Plt Count 325, MPV 8.7, Immature Gran % (Auto) 0.300, Neut % (Auto) 65.5, Lymph % (Auto) 26.4, [place] % (Auto) 6.5, Eos % (Auto) 0.8, Baso % (Auto) 0.5, Absolute Neuts (auto) 6.2, Absolute Lymphs (auto) 2.51, Nucleated RBC % 0 02/20/19 03:40: Sodium 141, Potassium 4.8, Chloride 106, Carbon Dioxide 28.0, Anion Gap 7, BUN 13, Creatinine 0.72, Estim Creat Clear Calc 77.13, Est GFR (MDRD) Af Amer 109, Est GFR (MDRD) Non-Af 90, BUN/Creatinine Ratio 18.2, Glucose 105, Calcium 8.6, Triglycerides 92, Cholesterol 218 H, LDL Cholesterol 119, VLDL Cholesterol 18, HDL Cholesterol 81 02/20/19 03:40: Hemoglobin A1c 6.0 02/20/19 03:40: Troponin I < 0.015 Current Medications Acetaminophen (Tylenol) 650 mg PO Q6H PRN PRN PRN Reason: Non-cardiac pain (mod-severe) Last Admin: 02/20/19 03:49 Dose: 650 mg Documented by: Hydrocodone Bitart/Acetaminophen ([place] 5mg-325mg) 1 - 2 tablet PO Q4H PRN PRN PRN Reason: Pain Score 4-10/10 Al Hydroxide/Mg Hydroxide (Mylanta Ii) 15 - 30 ml PO Q4H PRN PRN PRN Reason: INDIGESTION Albuterol Sulfate (Ventolin Aerosols) 2.5 mg INHALATION Q2H PRN PRN PRN Reason: dyspnea, wheezing Aspirin (Ecotrin) 81 mg PO DAILY@0800 [facility] Last Admin: 02/20/19 06:10 Dose: 81 mg Documented by: Dextrose (D50w Syringe) 0 gm IV X1 PRN; Protocol PRN Reason: Hypoglycemia Enoxaparin Sodium (Lovenox) 40 mg SC DAILY@1000 [facility] Last Admin: 02/20/19 11:30 Dose: Not Given Documented by: Famotidine (Pepcid) 20 mg PO BID [facility] Last Admin: 02/20/19 11:34 Dose: 20 mg Documented by: Glucagon () 1 mg IM .X1 PRN PRN Reason: Hypoglycemia Hydralazine HCl (Apresoline Iv) 10 mg IV Q4H PRN PRN PRN Reason: SBP > 160 Hydrochlorothiazide () 12.5 mg PO DAILY [facility] Last Admin: 02/20/19 11:34 Dose: 12.5 mg Documented by: Sodium Chloride () 1,000 mls @ 100 mls/hr IV .Q10H [facility] Last Admin: 02/20/19 13:22 Dose: Not Given Documented by: Lisinopril (Zestril) 10 mg PO DAILY [facility] Last Admin: 02/20/19 11:34 Dose: 10 mg Documented by: Magnesium Hydroxide (Milk Of Magnesia) 30 ml PO DAILY PRN PRN Reason: Constipation Morphine Sulfate () 1 - 2 mg IV Q4H PRN PRN PRN Reason: Pain Score 1-10/10 Nitroglycerin (Nitrostat) 0.4 mg SUBLINGUAL Q5M PRN PRN Reason: CARDIAC/CHEST PAIN Nutritional Formula (Lactose Free) (Ensure Enlive) 120 ml PO 4X/DAY [facility] Last Admin: 02/20/19 11:06 Dose: Not Given Documented by: Ondansetron HCl (Zofran) 4 mg IV Q8H PRN PRN PRN Reason: NAUSEA/VOMITING Sodium Chloride () 10 - 40 ml IV UD PRN PRN Reason: SALINE FLUSH Last Admin: 02/20/19 03:51 Dose: 10 ml Documented by: Temazepam (Restoril) 15 mg PO QHS PRN PRN PRN Reason: INSOMNIA Discharge Diet: Low fat/ Low Cholesterol Discharge Activity: Return to Normal Activity Weight Bearing Status: Weight bearing as tolerated Call your doctor if you observe: Shortness of breath, Swelling in the ankles, Chest pain Home Medications: Medications to take at Discharge aspirin 81 mg tablet,delayed release 81 mg PO QDAY 09/11/17 Famotidine [Pepcid] 20 mg PO BID 02/20/19 Lisinopril [Zestril] 10 mg PO DAILY #30 tab 02/20/19 Following Prescrptions Were Given to Patient: Lisinopril [Zestril] 10 mg PO DAILY #30 tab Transmission Status: Pending to [facility] [place] [address] Primary Care Physician: Airam Garrett MD [Primary Care Provider] - Please follow up with your Primary Care Physician in: one week Patient Instructions: What Is Angina?, Taking PASTORA Inhibitors, High Blood Pressure (Hypertension) Disposition: Home Minutes spent on discharge:: 35 Patient Condition:: Stable Medical Necessity - Tobacco Use Smoking Status: Never smoker Tobacco Use: Non-smoker Meaningful Use Info Meaningful Use Diagnoses (Choose all that apply): None applicable Code Visit OBSV E&M: 42471 Observation care discharge
== END 2019-02-20 16:15 | disposition home or self-care (01) ==
LOC: ED 22:29 → ICU 02-20 00:25
PROVIDERS: Admitting Provider Family Medicine; Emergency Provider Emergency Medicine; Family Provider Family Medicine; PCP Family Medicine; Visit Provider Student in an Organized Health Care Education/Training Program
DX: I16.0 Hypertensive urgency (principal); R07.89 Other chest pain; R06.02 Shortness of breath; R20.0 Anesthesia of skin; R03.0 Elevated blood-pressure reading, without diagnosis of hypertension; R73.9 Hyperglycemia, unspecified; E66.9 Obesity, unspecified; K21.9 Gastro-esophageal reflux disease without esophagitis; Z79.899 Other long term (current) drug therapy; Z79.82 Long term (current) use of aspirin; Z71.3 Dietary counseling and surveillance; R53.83 Other fatigue; Z68.34 Body mass index [BMI] 34.0-34.9, adult; F41.9 Anxiety disorder, unspecified; F32.9 Major depressive disorder, single episode, unspecified
CPT/HCPCS: 80048; 80061; 83036; 83735; 84484; 85025; 93005; 93017; 93350; 96360; 96361; 97802; 99218; 99251; 99285; J7030; Q9957; A4216; C8928; G0378; G0463

== ENCOUNTER → 2019-05-29 15:04 | Outpatient (CLI) | payer OTHER, SELFPAY ==
[2019-05-29 12:15] VITALS: BMI 34.7
--- NOTE | 2019-05-29 15:17 | CT_ITS ---
STUDY: CT ABDOMEN AND PELVIS WITH CONTRAST REASON FOR EXAM: Female, 53 years old. RLQ pain x 2 days, nausea, hx LEFT stones RADIATION DOSAGE (If Supplied By Facility): CTDIvol = ( 14.72 ) mGy, DLP = ( 1024.55 ) mGycm TECHNIQUE: Transaxial images were obtained from the dome of the diaphragm to the symphysis pubis with oral contrast. IV 100mL Isovue-300 was administered. Sagittal and coronal images were reconstructed. Individualized dose optimization techniques were used for this CT. COMPARISON: 07/26/2018 FINDINGS: The visualized lung bases are unremarkable. The visualized portions of the heart are within normal limits. Normal liver. Normal gallbladder and extrahepatic biliary system. Normal spleen. Normal pancreas. Normal bilateral adrenal glands. Normal right kidney. Normal left kidney. Normal visualized stomach. Normal small intestine. Normal colon. The appendix is visualized and appears normal. Normal abdominal aorta. Normal inferior vena cava. Normal retroperitoneum. Normal urinary bladder. Normal abdominal wall. Normal osseous structures. CT/Abdomen/Pelvis WITH Contrast IMPRESSION: Normal enhanced CT of the abdomen and pelvis. Electronically Signed: Daecon Pollard MD at 17:00 EST Tel , Service support ,
== END ==
PROVIDERS: PCP Family Medicine; Referring Provider Family Medicine; Visit Provider Family Medicine
DX: R19.8 Other specified symptoms and signs involving the digestive system and abdomen (principal)
CPT/HCPCS: 74177; Q9967

== ENCOUNTER → 2019-05-29 | Outpatient (CLI) | payer OTHER, SELFPAY ==
[2019-05-29 12:15] VITALS: BMI 34.7
== END | disposition home or self-care (01) ==
LOC: LABSPEC 14:21
PROVIDERS: PCP Family Medicine; Referring Provider Family Medicine; Visit Provider Family Medicine
DX: N39.0 Urinary tract infection, site not specified (principal)
CPT/HCPCS: 87086

== ENCOUNTER → 2021-03-23 10:14 | Outpatient (CLI) | payer OTHER, SELFPAY ==
[2021-03-23 10:30] LABS: Absolute Lymphocyte Count 1.91 X10^3/uL (0.83-4.51); Absolute Neutrophil Count 4.7 X10^3/uL (2.0-7.7); Basophil# 0.06 X10^3/uL; Basophil% 0.8 % (0-1); Eosinophil# 0.16 X10^3/uL; Eosinophils% 2.1 % (0-5); Hematocrit 41.8 % (37-47); Lymphocyte # 1.91 X10^3/ul (0.83-4.51); Lymphocyte % 25.5 % (19-41); Mean Corp Hgb Conc 33.5 g/dL (32-36); Mean Corpuscular Hgb 29.9 pg (27.0-32.0); Mean Corpuscular Volume 89.3 fL (81-99); Mean Platelet Vol. 8.2 fl (6.2-12.0); Monocyte# 0.64 X10^3/uL; Monocyte% 8.6 % (0-10); NRBC Flagged by Analyzer 0 % (0-5); Neutrophil % 62.9 % (47-70); Platelet Count 358 K/mm3 (150-450); RBC Distribution Width CV 12.6 % (11.6-14.6); RBC Distribution Width SD 41.2 fl (35.1-43.9); Red Blood Count 4.68 M/mm3 (4.2-5.4); White Blood Count 7.5 K/mm3 (4.4-11.0)
[2021-03-23 10:49] LABS: ALB/GLOB Ratio 0.8 RATIO (0.9-2.4); AST(SGOT) 21 U/L (15-37); Alanine Aminotransfer ALT/SGPT 41 U/L (13-56); Albumin, Serum 3.7 g/dL (3.2-5.0); Alkaline Phosphatase 116 U/L (45-117); Anion Gap 7 (5-15); BUN 10 mg/dL (7-18); BUN/Creat Ratio 15.2 RATIO (10-20); Calcium,Total 9.2 mg/dL (8.5-10.1); Chloride 102 mmol/L (98-107); Creatinine, Serum 0.66 mg/dL (0.55-1.02); EST Glomerular Filtration Rate 99 mL/min (>60); Est Glom Filt Rate - Afr Amer 119 mL/min (>60); Globulin 4.4 g/dL (2.2-4.2); Glucose 97 mg/dL (74-106); Potassium 3.9 mmol/L (3.5-5.1); Protein, Total 8.1 g/dL (6.4-8.2); Sodium Level 140 mmol/L (136-145)
== END ==
PROVIDERS: PCP Family Medicine; Referring Provider Obstetrics & Gynecology; Visit Provider Obstetrics & Gynecology
DX: R10.2 Pelvic and perineal pain (principal); R53.83 Other fatigue
CPT/HCPCS: 36415; 80053; 85025; 87086; 87088

== ENCOUNTER → 2022-08-03 | Outpatient (CLI) | payer OTHER, SELFPAY ==
--- NOTE | 2022-08-03 14:05 | RAD_ITS ---
STUDY: X-RAY CHEST REASON FOR EXAM: Female, 56 years old. COUGH TECHNIQUE: PA and lateral COMPARISON: February 19, 2019 FINDINGS: Mild discoid atelectasis in the left lower lobe.. There is no demonstrated pleural abnormality. Normal size heart. Normal mediastinum and frances. Normal visualized pulmonary arteries. Normal visualized aortic arch and descending thoracic aorta. Dorsal spine demonstrates mild spondylosis. Normal visualized ribs, clavicles, and shoulders. There is no demonstrated abnormality of the visualized soft tissue structures of the upper abdomen. RAD/Chest PA and Lateral IMPRESSION: Mild left basilar atelectasis Electronically Signed: Sreedhar Plaafox MD at 20:59 EDT ,
[2022-08-03 17:37] LABS: Hematocrit 43.4 % (37-47); Hemoglobin 13.4 g/dL (12.0-15.0); Mean Corp Hgb Conc 30.9 g/dL (32-36); Mean Corpuscular Hgb 29.3 pg (27.0-32.0); Mean Platelet Vol. 9.3 fl (6.2-12.0); Platelet Count 321 K/mm3 (150-450); RBC Distribution Width CV 13.2 % (11.6-14.6); RBC Distribution Width SD 46.3 fl (35.1-43.9); Red Blood Count 4.57 M/mm3 (4.2-5.4); White Blood Count 13.1 K/mm3 (4.4-11.0)
[2022-08-03 17:55] LABS: Anion Gap 10 (5-15); BUN 15 mg/dL (7-18); BUN/Creat Ratio 21.2 RATIO (10-20); Chloride 104 mmol/L (98-107); Creatinine, Serum 0.71 mg/dL (0.55-1.02); EST Glomerular Filtration Rate 90 mL/min (>60); Est Glom Filt Rate - Afr Amer 109 mL/min (>60); Glucose 98 mg/dL (74-106); Potassium 3.6 mmol/L (3.5-5.1); Sodium Level 139 mmol/L (136-145)
== END | disposition home or self-care (01) ==
LOC: MTLAB 14:03
PROVIDERS: PCP Family Medicine; Referring Provider Family Medicine; Visit Provider Family Medicine
DX: R05.9 Cough, unspecified (principal)
CPT/HCPCS: 36415; 71046; 80048; 85027

== ENCOUNTER → 2022-11-20 | Outpatient (CLI) | payer OTHER, SELFPAY ==
[2022-11-20 09:02] LABS: Cholesterol 211 mg/dL (200); Glucose 105 mg/dL (74-106); High Density Lipoprotein 70 mg/dL; Thyroid Stim Hormone (TSH) 3.41 uIU/mL (0.358-3.74); Triglycerides 156 mg/dL; Very Low Density Lipoprotein 31 mg/dL (5-40); Vitamin D,25 Hydroxy 28.3 ng/mL
== END | disposition home or self-care (01) ==
PROVIDERS: PCP Family Medicine; Referring Provider Obstetrics & Gynecology; Visit Provider Obstetrics & Gynecology
DX: Z13.220 Encounter for screening for lipoid disorders (principal); Z13.29 Encounter for screening for other suspected endocrine disorder; Z13.1 Encounter for screening for diabetes mellitus; Z13.21 Encounter for screening for nutritional disorder
CPT/HCPCS: 36415; 80061; 82306; 82947; 84443

== ENCOUNTER → 2024-04-21 | Outpatient (CLI) | payer OTHER, SELFPAY | END | disposition home or self-care (01) | LOC: LABSPEC 11:40 | PROVIDERS: PCP Family Medicine; Visit Provider Family Medicine | DX: R30.0 Dysuria (principal) | CPT/HCPCS: 87086 ==

== ENCOUNTER → 2024-05-09 | Outpatient (CLI) | payer OTHER, SELFPAY ==
--- NOTE | 2024-05-09 12:36 | RAD_ITS ---
PROCEDURE: CHEST PA AND LATERAL REASON FOR EXAM: Rule out pneumonia. Shooting pain left side of chest ribs. TECHNIQUE: Frontal and lateral views of the chest. COMPARISON: 08/03/2022. FINDINGS: The heart size is normal. The mediastinal contour is unremarkable. No acute consolidation, pleural effusion or pneumothorax. The visualized osseous structures demonstrate degenerative changes. No acute displaced rib fractures identified. RAD/Chest PA and Lateral IMPRESSION: No focal consolidation. No acute displaced rib fractures identified. Reading Location: [id number]
== END | disposition home or self-care (01) ==
LOC: MTRAD 12:34
PROVIDERS: PCP Nurse Practitioner Family; Referring Provider Nurse Practitioner Family; Visit Provider Nurse Practitioner Family
DX: R07.9 Chest pain, unspecified (principal); R05.9 Cough, unspecified
CPT/HCPCS: 71046

== ENCOUNTER → 2024-05-23 | Outpatient (CLI) | payer OTHER, SELFPAY ==
[2024-05-23 12:35] LABS: Absolute Lymphocyte Count 1.79 X10^3/uL (0.83-4.51); Absolute Neutrophil Count 4.4 X10^3/uL (2.0-7.7); Basophil# 0.05 X10^3/uL; Basophil% 0.7 % (0-1); Eosinophil# 0.14 X10^3/uL; Hematocrit 39.7 % (37-47); Hemoglobin 12.8 g/dL (12.0-15.0); Lymphocyte # 1.79 X10^3/ul (0.83-4.51); Lymphocyte % 25.4 % (19-41); Mean Corp Hgb Conc 32.2 g/dL (32-36); Mean Corpuscular Hgb 29.2 pg (27.0-32.0); Mean Corpuscular Volume 90.4 fL (81-99); Mean Platelet Vol. 8.7 fl (6.2-12.0); Monocyte# 0.66 X10^3/uL; Monocyte% 9.4 % (0-10); NRBC Flagged by Analyzer 0 % (0-5); Neutrophil # 4.38 X10^3/uL (2.7-7.7); Neutrophil % 62.1 % (47-70); Platelet Count 477 K/mm3 (150-450); RBC Distribution Width CV 13.2 % (11.6-14.6); RBC Distribution Width SD 43.5 fl (35.1-43.9); Red Blood Count 4.39 M/mm3 (4.2-5.4); White Blood Count 7.1 K/mm3 (4.4-11.0)
[2024-05-23 12:52] LABS: D-Dimer Quantitative (DVT/PE) 0.38 FEU/ug/m (0.27-0.49)
[2024-05-23 13:28] LABS: Troponin-I HS 3 pg/mL (3.0-54.0)
== END | disposition home or self-care (01) ==
LOC: BFHLAB 10:56
PROVIDERS: PCP Family Medicine; Visit Provider Family Medicine
DX: E01.0 Iodine-deficiency related diffuse (endemic) goiter (principal); R05.9 Cough, unspecified; R07.9 Chest pain, unspecified
CPT/HCPCS: 36415; 84443; 84484; 85025; 85379